=== PATIENT | female | born 1985 | race Native Hawaiian/Other Pacific Islander ===

== ENCOUNTER 2018-02-07 10:31 | Emergency (ER) | payer OTHER ==
[2018-02-07 10:50] VITALS: BMI 37.3
[2018-02-07] MEDS ORDERED: Sodium Chloride 0.9% 1,000 ML IV STA (11:19)
--- NOTE | 2018-02-07 11:22 | ED PDOC ---
HPI: General Adult Time Seen by Provider: 02/07/18 11:10 Chief Complaint (Nursing): Abdominal Pain Chief Complaint (Provider): Purulent discharge History Per: Patient History/Exam Limitations: no limitations Onset/Duration Of Symptoms: Days (2 months) Additional History Per: Patient Additional Complaint(s): Pt. had a 6 years ago. Since then she can't feel the area around the . Here as for 2 days she is having discharge from the right side of the scar. It is slightly open and off and on pain. See by her doctor and given a cream to try. It did not help. No weakness, vaginal discharge or bleeding, nausea, vomit, diarrhea. No back pain. No fever. Past Medical History Reviewed: Nursing Documentation, Vital Signs Vital Signs: Last Vital Signs Temp 98.6 F 02/07/18 10:50 Pulse 75 02/07/18 10:50 Resp 20 02/07/18 10:50 BP 94/60 L 02/07/18 10:50 Pulse Ox 97 02/07/18 11:36 - Medical History PMH: No Chronic Diseases - Surgical History Surgical History: - Family History Family History: States: Unknown Family Hx - Living Arrangements Living Arrangements: With Family - Social History Current smoker - smoking cessation education provided: No Alcohol: None Drugs: Denies - Home Medications Home Medications: Ambulatory Orders Medication Instructions Recorded Cephalexin [cephalexin] 500 mg PO TID 7 Days cap 02/07/18 - Allergies Allergies/Adverse Reactions: Allergies Allergy/AdvReac Type Severity Reaction Status Date / Time No Known Allergies Allergy Verified 02/07/18 11:18 Review of Systems ROS Statement: Except As Marked, All Systems Reviewed And Found Negative Gastrointestinal: Positive for: Abdominal Pain Skin: Positive for: Lesions Physical Exam - Reviewed Nursing Documentation Reviewed: Yes Vital Signs Reviewed: Yes - Physical Exam Appears: Positive for: Non-toxic, No Acute Distress Head Exam: Positive for: ATRAUMATIC, NORMAL INSPECTION, NORMOCEPHALIC Skin: Positive for: Normal Color, Warm, DRY Eye Exam: Positive for: EOMI, Normal appearance, PERRL ENT: Positive for: Normal ENT Inspection Neck: Positive for: Normal, Painless ROM Cardiovascular/Chest: Positive for: Regular Rate, Rhythm Respiratory: Positive for: CNT, Normal Breath Sounds Gastrointestinal/Abdominal: Positive for: Soft, Tenderness (R lower abd with c- section scar with end of it slightly open with yellow discharge; mild tender; no erythema, induration, fluctuant mass.) Back: Positive for: Normal Inspection. Negative for: L CVA Tenderness, R CVA Tenderness Extremity: Positive for: Normal ROM. Negative for: Tenderness, Pedal Edema Neurologic/Psych: Positive for: Alert, Oriented - Laboratory Results Result Diagrams: 02/07/18 11:35 02/07/18 11:35 Interpretation Of Abn Labs: no acute - ECG O2 Sat by Pulse Oximetry: 97 Pulse Ox Interpretation: Normal - Progress ED Course And Treament: 1448: Stable. AAOx3. Surgery resident saw pt. They spoke with their attending. Just want dressing, keflex, and fu with pcp. No acute process. Disposition - Clinical Impression Clinical Impression: Open wound - Patient ED Disposition Is Patient to be Admitted: No Counseled Patient/Family Regarding: Studies Performed, Diagnosis, Need For Followup, Rx Given - Disposition Referrals: [facility] [place] [Outside] - 02/08/18 Disposition: Routine/Home Disposition Time: 14:49 Condition: STABLE Additional Instructions: Return if not better in 3 days. Prescriptions: Cephalexin [cephalexin] 500 mg PO TID 7 Days cap Instructions: Wound Care Forms: [employer] (Mauritian)
[2018-02-07 12:05] LABS: BASO # 0.1 K/uL (0.0-0.2); BASO % 1.2 % (0.0-2.0); EOS # 0.2 K/uL (0.0-0.7); EOS % 1.8 % (0.0-4.0); HEMOGLOBIN 12.2 g/dL (12.0-16.0); LYMPH # 3.9 K/uL (1.0-4.3); LYMPH % 40.7 % (20.0-40.0); MEAN CELL VOLUME 81.6 fl (81.0-99.0); MEAN CORPUSCULAR HEMOGLOBIN 26.9 pg (27.0-31.0); MONO # 0.5 K/uL (0.0-0.8); MONO % 5.7 % (0.0-10.0); NEUT # 4.9 K/uL (1.8-7.0); NEUT % 50.6 % (50.0-75.0); RBC 4.54 Mil/uL (3.80-5.20); RED CELL DISTRIBUTION WIDTH 14.2 % (11.5-14.5); WHITE BLOOD COUNT 9.6 K/uL (4.8-10.8)
[2018-02-07 12:17] LABS: CALCIUM 8.9 mg/dL (8.4-10.2); GFR AFRICAN-AMERICAN > 60; GFR NON-AFRICAN AMERICAN > 60
[2018-02-07 12:40] LABS: BLOOD UREA NITROGEN 15 mg/dl (7-17)
[2018-02-07 12:41] LABS: ALB/GLOB RATIO 1.2 (1.0-2.1); ALBUMIN 4.5 g/dL (3.5-5.0); ALT/SGPT 21 U/L (9-52); AST/SGOT 37 U/L (14-36)
[2018-02-07] MEDS ORDERED: Sodium Chloride 0.9% 50 ML IV ONE (13:05)
[2018-02-07] MEDS ORDERED: Iohexol 300 100 ML IJ ONE (13:05)
--- NOTE | 2018-02-07 13:36 | CT ---
PROCEDURE: CT Abdomen and Pelvis with contrast HISTORY: abd pain COMPARISON: None. TECHNIQUE: Contrast dose: 95 mL Omnipaque 300 Radiation dose: Total exam DLP = 1000.31 mGy-cm. This CT exam was performed using one or more of the following dose reduction techniques: Automated exposure control, adjustment of the mA and/or kV according to patient size, and/or use of iterative reconstruction technique. FINDINGS: LOWER THORAX: Unremarkable. LIVER: Unremarkable. No gross lesion or ductal dilatation. GALLBLADDER AND BILE DUCTS: Unremarkable. PANCREAS: Unremarkable. No gross lesion or ductal dilatation. SPLEEN: Unremarkable. ADRENALS: Unremarkable. No mass. KIDNEYS AND URETERS: Unremarkable. No hydronephrosis. No solid mass. VASCULATURE: Unremarkable. No aortic aneurysm. BOWEL: Unremarkable. No obstruction. No gross mural thickening. APPENDIX: Normal appendix. PERITONEUM: Unremarkable. No free fluid. No free air. LYMPH NODES: Unremarkable. No enlarged lymph nodes. BLADDER: Unremarkable. REPRODUCTIVE: Unremarkable. BONES: No acute fracture. OTHER FINDINGS: None. IMPRESSION: Unremarkable contrast enhanced CT of the abdomen and pelvis.
[2018-02-07 15:09] VITALS: BP 107/84; PULSE 62; RESP 18; TEMP 98.3; O2SAT 99
--- NOTE | 2018-02-07 15:41 | CP.PCM.CON ---
History of Present Illness - History of Present Illness History of Present Illness: Surgery Consult note. Dr. Parikh 33yo F with no significant PMHx here for evaluation of abdominal wound. Patient states that she had a uncomplicated 6 years ago in [facility] and the surgical site had healed well. The right lateral side of her surgical scar began to start draining some clear, white/yellow fluid over the past 2 months. She states that she has always had some decreases sensation to the skin overlying the scar. She saw her PMD a few week ago and was given a prescription for silver sulfadiazine topical. She states that after use, the skin would heal but open back up again after she would stop using it for a few days. She denies any Fevers or chills. No abdominal pain. No N/V/D. No reported masses or hernias. No sick contacts. PMHx: Denies PSHx: 6 years ago in [facility] Family Hx: non-contributory Social Hx: denies tobacco use, denies ETOH use, denies drug use NKDA Review of Systems - Review of Systems All systems: reviewed and no additional remarkable complaints except - Constitutional Constitutional: absent: Chills, Fever - Cardiovascular Cardiovascular: absent: Chest Pain, Dyspnea - Respiratory Respiratory: absent: Cough - Gastrointestinal Gastrointestinal: absent: Abdominal Pain, Diarrhea, Nausea, Vomiting Past Patient History - Past Medical History & Family History Past Family History: Reviewed and not pertinent - Past Social History Smoking Status: Never Smoked Alcohol: None Drugs: Denies - ENDOCRINE/METABOLIC Hx Endocrine Disorders: Yes Hx Hypothyroidism: Yes - PSYCHIATRIC Hx Substance Use: No - SURGICAL HISTORY Hx Surgeries: Yes Hx Section: Yes - ANESTHESIA Hx Anesthesia: Yes Hx Anesthesia Reactions: No Meds Home Medications: Home Medication List Medication Instructions Recorded Confirmed Type Cephalexin [cephalexin] 500 mg PO TID 7 Days cap 02/07/18 Rx Allergies/Adverse Reactions: Allergies Allergy/AdvReac Type Severity Reaction Status Date / Time No Known Allergies Allergy Verified 02/07/18 11:18 Physical Exam - Constitutional Appears: Well, Non-toxic, No Acute Distress - Head Exam Head Exam: ATRAUMATIC, NORMAL INSPECTION, NORMOCEPHALIC - Eye Exam Eye Exam: EOMI, Normal appearance. absent: Scleral icterus - ENT Exam ENT Exam: Mucous Membranes Moist - Respiratory Exam Respiratory Exam: NORMAL BREATHING PATTERN. absent: Accessory Muscle Use, Wheezes, Respiratory Distress - Cardiovascular Exam Cardiovascular Exam: absent: JVD - GI/Abdominal Exam GI & Abdominal Exam: Soft. absent: Distended, Firm, Guarding, Rigid, Tenderness - Extremities Exam Extremities exam: Positive for: normal inspection. Negative for: calf tenderness - Neurological Exam Neurological exam: Alert, Oriented x3 - Skin Skin Exam: Normal Color, Warm Additional comments: small ~1-2mm opening noted at the right lateral aspect of low transverse abdominal incision. Mild active serrous drainage noted. No erythema, no induration. No fluctuance. Results - Vital Signs Recent Vital Signs: Last Vital Signs Temp 98.3 F 02/07/18 15:09 Pulse 62 02/07/18 15:09 Resp 18 02/07/18 15:09 BP 107/84 02/07/18 15:09 Pulse Ox 99 02/07/18 15:09 - Labs Result Diagrams: 02/07/18 11:35 02/07/18 11:35 Labs: Laboratory Results - last 24 hr 02/07/18 02/07/18 11:35 11:35 WBC 9.6 RBC 4.54 Hgb 12.2 Hct 37.0 MCV 81.6 MCH 26.9 L MCHC 33.0 RDW 14.2 Plt Count 283 MPV 9.0 Neut % (Auto) 50.6 Lymph % (Auto) 40.7 H [place] % (Auto) 5.7 Eos % (Auto) 1.8 Baso % (Auto) 1.2 Neut # (Auto) 4.9 Lymph # (Auto) 3.9 [place] # (Auto) 0.5 Eos # (Auto) 0.2 Baso # (Auto) 0.1 Sodium 140 Potassium 4.8 Chloride 106 Carbon Dioxide 23 Anion Gap 16 BUN 15 Creatinine 0.5 L Est GFR ( Amer) > 60 Est GFR (Non-Af Amer) > 60 Random Glucose 98 Calcium 8.9 Total Bilirubin 0.5 AST 37 H ALT 21 Alkaline Phosphatase 54 Total Protein 8.2 Albumin 4.5 Globulin 3.7 Albumin/Globulin Ratio 1.2 Assessment & Plan - Assessment and Plan (Free Text) Assessment: 33yo F with small abdominal non-healing wound - no Leukocytosis. Afebrile. No physical evidence of abscess or wound dehiscence. - CT Abd/Pelvis noted: Unremarkable. No abscess noted. Plan: - No indications for any general surgery interventions at this time - Discharge home with Abx - Patient may follow up with her PMD Further recs as per Dr. Jl Nunez PGY1 Surgery pager: [phone]
== END 2018-02-07 15:10 | disposition home or self-care (01) ==
LOC: H.ER 10:31
DX: S31.609A Unspecified open wound of abdominal wall, unspecified quadrant with penetration into peritoneal cavity, initial encounter (principal); S31.109A Unspecified open wound of abdominal wall, unspecified quadrant without penetration into peritoneal cavity, initial encounter; E03.9 Hypothyroidism, unspecified; Z48.01 Encounter for change or removal of surgical wound dressing
CPT/HCPCS: 74177; 80053; 81025; 85025; 96360; 99284; J7030; Q9967